=== PATIENT | male | born 1995 | race Caucasian/White ===

== ENCOUNTER 2018-05-25 19:22 | Emergency (ER) | payer OTHER ==
[2018-05-25] MEDS ORDERED: NS 0.9% 1000 ML* 1,000 ML IV ONE (19:49)
[2018-05-25] MEDS ORDERED: Ketorolac INJ* 30 MG/ML 1 ML VIAL IV PUSH ONE (19:51)
--- NOTE | 2018-05-25 19:54 | ED ---
GI/ HPI - HPI Summary HPI Summary: 22-year-old male presents with right upper quadrant pain for the past 2 months. He states that pain has not changed locations. Is more intense over the past days. He admits one episode of vomiting today and some nausea. Pulses been having diarrhea intermittently every time he eats. He denies any blood in stool. Has had no appetite today. No urinary symptoms. No testicular pain. No chest pain shortness breath or cough. No recent illness. No one else is sick. Did not eat anything different. was seen at urgent care this weekend and then had a normal CT per patient. No flank pain. No previous belly surgeries. - History of Current Complaint Chief Complaint: EDAbdPain Time Seen by Provider: 05/25/18 19:38 Stated Complaint: ABD PAIN/VOMITING Pain Intensity: 2 - Allergy/Home Medications Allergies/Adverse Reactions: Allergies Allergy/AdvReac Type Severity Reaction Status Date / Time No Known Allergies Allergy Verified 05/25/18 19:32 Home Medications: Home Medications NK [No Home Medications Reported] 05/25/18 [History Confirmed 05/25/18] PMH/Surg Hx/FS Hx/Imm Hx Endocrine/Hematology History: Denies: Hx Anticoagulant Therapy Cardiovascular History: Denies: Hx Myocardial Infarction Infectious Disease History: No Infectious Disease History: Denies: Traveled Outside the [place] in Last 30 Days - Family History Known Family History: Positive: Other - gallbladder issues - Social History Substance Use Type: Reports: None Review of Systems Negative: Fever Negative: Chest Pain Negative: Shortness Of Breath, Cough Positive: Abdominal Pain, Vomiting, Diarrhea, Nausea All Other Systems Reviewed And Are Negative: Yes Physical Exam Triage Information Reviewed: Yes Vital Signs On Initial Exam: Initial Vitals Temp Pulse Resp BP Pulse Ox 98.2 F 82 18 148/73 98 05/25/18 19:30 05/25/18 19:30 05/25/18 19:30 05/25/18 19:30 05/25/18 19:30 Vital Signs Reviewed: Yes Appearance: Positive: Well-Appearing Skin: Positive: Warm, Dry Head/Face: Positive: Normal Head/Face Inspection Eyes: Positive: Normal, EOMI, NICOLE, Conjunctiva Clear ENT: Positive: Normal ENT inspection, Pharynx normal, TMs normal Respiratory/Lung Sounds: Positive: Clear to Auscultation, Breath Sounds Present Cardiovascular: Positive: Normal, RRR Abdomen Description: Positive: Soft, Other: - mild tenderness RUQ Bowel Sounds: Positive: Present Musculoskeletal: Positive: Normal Neurological: Positive: Normal Psychiatric: Positive: Normal Diagnostics - Vital Signs Vital Signs Temp Pulse Resp BP Pulse Ox 05/25/18 19:30 98.2 F 82 18 148/73 98 - Laboratory Result Diagrams: 05/25/18 20:50 05/25/18 20:50 Lab Statement: Any lab studies that have been ordered have been reviewed, and results considered in the medical decision making process. - Ultrasound No standard instances Ultrasound Interpretation Completed By: Radiologist Summary of Ultrasound Findings: IMPRESSION: Biliary sludge without cholelithiasis or ultrasound findings of cholecystitis. GIGU Course/Dx - Course Course Of Treatment: 22-year-old male presents with right upper quadrant pain for the past 2 months. He states that pain has not changed locations. Is more intense over the past days. He admits one episode of vomiting today and some nausea. Pulses been having diarrhea intermittently every time he eats. He denies any blood in stool. Has had no appetite today. No urinary symptoms. No testicular pain. No chest pain shortness breath or cough. No recent illness. No one else is sick. Did not eat anything different. was seen at urgent care this weekend and then had a normal CT per patient. No flank pain. No previous belly surgeries. On exam has mild tenderness in the right upper quadrant. No rebound. wbc normal. electrolytnes normal. crp normal. gallbladder u/s shows sludge. with lenght of symptoms and sludge will have follow up with GI. patient understand and agrees with plan. - Diagnoses Differential Diagnoses - Male: Cholecystitis, Cholelithiasis, Gastroenteritis ( Viral) Provider Diagnoses: Abdominal pain, Nausea vomiting and diarrhea Discharge - Sign-Out/Discharge Documenting (check all that apply): Patient Departure - Discharge Plan Condition: Good Disposition: HOME Patient Education Materials: Abdominal Pain (ED) Referrals: Jose Roberto Calvin MD [Primary Care Provider] - Jatin Che MD [Medical Doctor] - Additional Instructions: Follow up with GI Take Tylenol or ibuprofen every 6 hours as needed for pain Eat a balanced diet Return to ED if develop any new or worsening symptoms - Billing Disposition and Condition Condition: GOOD Disposition: Home
[2018-05-25 20:21] VITALS: BP 126/73
[2018-05-25 20:55] LABS: ABS Basophils 0 10^3/ul (0-0.2); ABS Eosinophils 0 10^3/ul (0-0.6); ABS Lymphocytes 2.2 10^3/ul (1.0-4.8); ABS Monocytes 0.6 10^3/ul (0-0.8); ABS Neutrophils 7.5 10^3/ul (1.5-7.7); ABS Nucleated RBC 0 10^3/ul; Eosinophil % 0.3 %; Hematocrit 45 % (42-52); Hemoglobin 15.4 g/dl (14.0-18.0); Lymphocyte % 21.5 %; Mean Corpuscular HGB Conc 34 g/dl (31-36); Mean Corpuscular Hemoglobin 28 pg (27-31); Mean Corpuscular Volume 83 fL (80-94); Mean Platelet Volume 7.9 fL (7.4-10.4); Nucleated Red Blood Cells % 0.1; Platelet Count 298 10^3/ul (150-450); Red Blood Count 5.41 10^6/ul (4.00-5.40); Red Cell Distribution Width 13 % (10.5-15); White Blood Count 10.4 10^3/ul (3.5-10.8)
[2018-05-25 21:13] LABS: Albumin 4.8 g/dL (3.2-5.2); Albumin/Globulin Ratio 1.6 (1-3); BUN/Creatinine Ratio 11.8 (8-20); C Reactive Protein 1.26 mg/L (<8.01); Calcium 9.9 mg/dL (8.6-10.3); EGFR Non-African American 103.6 (>60); Potassium 3.6 mmol/L (3.5-5.0); Total Bilirubin 0.7 mg/dL (0.2-1.0); Total Protein 7.8 g/dL (6.4-8.9)
== END 2018-05-25 22:25 | disposition home or self-care (01) ==
LOC: ED 19:22
DX: R10.11 Right upper quadrant pain (principal); R11.2 Nausea with vomiting, unspecified; R19.7 Diarrhea, unspecified
CPT/HCPCS: 36415; 76705; 80053; 83690; 83735; 85025; 86140; 96361; 96374; 99283; J1885

== ENCOUNTER 2018-05-28 12:07 | Emergency (ER) | payer OTHER ==
--- NOTE | 2018-05-28 12:24 | ED ---
Abdominal Pain/Male - HPI Summary HPI Summary: A 22 y/o male presents to [facility] with a chief complaint of RUQ abd pain since . The patient reports that he was recently in the ED on 05/25/18 and was told he has "sludge in his gallbladder". The patient has a gastro appointment scheduled for 06/12/17, but returns to the ED on 05/28/18 with increased abd pain. He rates his abd pain as 5/10. The patient states that eating aggravates his pain. He last ate crackers at 10:30. - History of Current Complaint Chief Complaint: EDAbdPain Stated Complaint: ABD PAIN Time Seen by Provider: 05/28/18 12:13 Hx Obtained From: Patient Onset/Duration: Sudden Onset, Lasting Days, Still Present Severity Initially: Moderate Severity Currently: Moderate Pain Intensity: 5 Pain Scale Used: 0-10 Numeric Location: Discrete At: RUQ Radiates: No Aggravating Factor(s): Food Alleviating Factor(s): Nothing Associated Signs And Symptoms: Negative: Fever - Allergies/Home Medications Allergies/Adverse Reactions: Allergies Allergy/AdvReac Type Severity Reaction Status Date / Time No Known Allergies Allergy Verified 05/28/18 12:11 PMH/Surg Hx/FS Hx/Imm Hx Endocrine/Hematology History: Denies: Hx Anticoagulant Therapy, Hx Diabetes Cardiovascular History: Denies: Hx Hypercholesterolemia, Hx Hypertension, Hx Myocardial Infarction Infectious Disease History: No Infectious Disease History: Denies: Traveled Outside the [place] in Last 30 Days - Family History Known Family History: Positive: Other - gallbladder issues - Social History Alcohol Use: None Substance Use Type: Reports: None Smoking Status (MU): Never Smoked Tobacco Review of Systems Negative: Fever Positive: Abdominal Pain - RUQ All Other Systems Reviewed And Are Negative: Yes Physical Exam - Summary Physical Exam Summary: Appearance: The patient is well-nourished in no acute distress and in no acute pain. Skin: The skin is warm and dry and skin color reflects adequate perfusion. HEENT: The head is normocephalic and atraumatic. The pupils are equal and reactive. The conjunctivae are clear and without drainage. Nares are patent and without drainage. Mouth reveals moist mucous membranes and the throat is without erythema and exudate. The external ears are intact. The ear canals are patent and without drainage. The tympanic membranes are intact. Neck: The neck is supple with full range of motion and non-tender. There are no carotid bruits. There is no neck vein distension. Respiratory: Chest is non-tender. Lungs are clear to auscultation and breath sounds are symmetrical and equal. Cardiovascular: Heart is regular rate and rhythm. There is no murmur or rub auscultated. There is no peripheral edema and pulses are symmetrical and equal. Abdomen: Mild tenderness RUQ. There are normal bowel sounds heard in all four quadrants and there is no organomegaly palpated. Musculoskeletal: There is no back tenderness noted. Extremities are non-tender with full range of motion. There is good capillary refill. There is no peripheral edema or calf tenderness elicited. Neurological: Patient is alert and oriented to person, place and time. The patient has symmetrical motor strength in all four extremities. Cranial nerves are grossly intact. Deep tendon reflexes are symmetrical and equal in all four extremities. Psychiatric: The patient has an appropriate affect and does not exhibit any anxiety or depression. Triage Information Reviewed: Yes Vital Signs On Initial Exam: Initial Vitals Temp Pulse Resp BP Pulse Ox 98.6 F 85 16 152/67 99 05/28/18 12:09 05/28/18 12:09 05/28/18 12:09 05/28/18 12:09 05/28/18 12:09 Vital Signs Reviewed: Yes Diagnostics - Vital Signs Vital Signs Temp Pulse Resp BP Pulse Ox 05/28/18 12:09 98.6 F 85 16 152/67 99 - Laboratory Result Diagrams: 05/28/18 12:36 05/28/18 12:36 Lab Statement: Any lab studies that have been ordered have been reviewed, and results considered in the medical decision making process. Abdominal Pain Fem Course/Dx - Course Course Of Treatment: Mr. Gonzalez return to the emergency department complaining that his pain was worse today. It's the same pain that he's been having and just received a workup for. He was found to have biliary sludge and tenderness in his right upper quadrant previously and is scheduled for gastroenterology follow-up on June 12. He was nontoxic in appearance and vital signs are stable on arrival. Labs were obtained and were unremarkable. He was tender in the right upper quadrant and I will treat him with pain medication and try to get him through till he can see the airplane electrical repairer. - Diagnoses Provider Diagnoses: Gall bladder disease, Biliary colic Discharge - Sign-Out/Discharge Documenting (check all that apply): Patient Departure - DC - Discharge Plan Condition: Stable Disposition: HOME Prescriptions: traMADol TAB* [Ultram*] 50 mg PO Q6HR PRN #20 tab MDD 4 PRN Reason: Pain Referrals: Jose Roberto Calvin MD [Primary Care Provider] - (2-3 days) Additional Instructions: Keep your gastro appointment. Return to the ED if you experience any new or worsening symptoms. - Billing Disposition and Condition Condition: STABLE Disposition: Home - Attestation Statements Document Initiated by Scribe: Yes Documenting Scribe: Hebert Gross Provider For Whom Deniz is Documenting (Include Credential): Naresh Cunningham MD Scribe Attestation: I, Hebert Gross, scribed for Naresh Cunningham MD on 05/28/18 at 1540. Scribe Documentation Reviewed: Yes Provider Attestation: The documentation as recorded by the Hebert sanchez accurately reflects the service I personally performed and the decisions made by me, Naresh Cunningham MD Status of Scribe Document: Viewed
[2018-05-28 12:47] LABS: ABS Basophils 0 10^3/ul (0-0.2); ABS Eosinophils 0.1 10^3/ul (0-0.6); ABS Lymphocytes 1.4 10^3/ul (1.0-4.8); ABS Monocytes 0.6 10^3/ul (0-0.8); ABS Neutrophils 3.2 10^3/ul (1.5-7.7); ABS Nucleated RBC 0 10^3/ul; Eosinophil % 1.2 %; Hematocrit 47 % (42-52); Hemoglobin 15.8 g/dl (14.0-18.0); Lymphocyte % 26.3 %; Mean Corpuscular HGB Conc 34 g/dl (31-36); Mean Corpuscular Hemoglobin 28 pg (27-31); Mean Corpuscular Volume 84 fL (80-94); Mean Platelet Volume 7.9 fL (7.4-10.4); Nucleated Red Blood Cells % 0.1; Platelet Count 273 10^3/ul (150-450); Red Blood Count 5.61 10^6/ul (4.00-5.40); Red Cell Distribution Width 13 % (10.5-15); White Blood Count 5.2 10^3/ul (3.5-10.8)
[2018-05-28 13:03] LABS: Albumin 4.6 g/dL (3.2-5.2); Albumin/Globulin Ratio 1.6 (1-3); BUN/Creatinine Ratio 16.7 (8-20); C Reactive Protein 1.34 mg/L (<8.01); Calcium 9.6 mg/dL (8.6-10.3); EGFR Non-African American 107.6 (>60); Globulin 2.8 g/dL (2-4); Total Bilirubin 0.5 mg/dL (0.2-1.0); Total Protein 7.4 g/dL (6.4-8.9)
[2018-05-28 15:01] VITALS: BP 145/97
== END 2018-05-28 15:00 | disposition home or self-care (01) ==
LOC: ED 12:07
DX: K82.9 Disease of gallbladder, unspecified (principal); K80.50 Calculus of bile duct without cholangitis or cholecystitis without obstruction
CPT/HCPCS: 36415; 80053; 83690; 85025; 86140; 99282

== ENCOUNTER 2018-08-18 12:55 | Day surgery (SDC) | payer OTHER ==
[~2018-08-18 12:55] MED LIST: Buffered Lidocaine 1% SYRIN* 1 ML/SYRINGE INTRADERM ONE; Famotidine IV* 10 MG/ML 2 ML (20 mg) IV ONE; Lactated Ringers 1000 ML Bag* 1,000 ML IV SCH
[2018-08-18] MEDS ORDERED: Famotidine IV* 10 MG/ML 2 ML (20 mg) ONE (13:11)
[2018-08-18] MEDS ORDERED: Buffered Lidocaine 1% SYRIN* 1 ML/SYRINGE INTRADERM ONE (13:11)
[2018-08-18] MEDS ORDERED: ceFAZolin 2 GM in NS PREMIX(*) 2 GM/100 ML BAG IVPB ONE (13:11)
[2018-08-18] MEDS ORDERED: Midazolam* 1 MG/ML 5 ML VIAL (5 MG) ONE (13:34)
[2018-08-18] MEDS ORDERED: fentaNYL* 50 MCG/ML 2 ML VIAL (100 MCG VIAL) ONE ×2 (13:34→17:13)
[2018-08-18] MEDS ORDERED: DiMENhydriNATE IV* 50 MG/ML VIAL ONE (14:50)
[2018-08-18] MEDS ORDERED: Dexamethasone IV* 4 MG/ML 1 ML (4 MG) ONE (14:50)
[2018-08-18] MEDS ORDERED: Lidocaine 2% PF * 5 ML VIAL ONE (14:50)
[2018-08-18] MEDS ORDERED: Ondansetron INJ* 2 MG/ML VIAL ONE (14:50)
[2018-08-18] MEDS ORDERED: Propofol* 10 MG/ML 20 ML BTL ONE ×2 (14:50→17:03)
[2018-08-18] MEDS ORDERED: Ketorolac INJ* 30 MG/ML 1 ML VIAL ONE (14:50)
[2018-08-18] MEDS ORDERED: Bupivacaine 0.5% W/EPI SDV* 30 ML VIAL ONE (16:29)
[2018-08-18] MEDS ORDERED: Rocuronium* 10 MG/ML VIAL ONE (17:18)
[2018-08-18] MEDS ORDERED: HYDROmorphone INJ1* 1 MG/ML SYRINGE ONE ×2 (17:23→18:07)
[2018-08-18] MEDS ORDERED: oxyCODONE/Acetamin 5/325 MG* TAB PO ONE (17:52)
[2018-08-18] MEDS ORDERED: DiMENhydriNATE IV* 50 MG/ML VIAL IV PUSH PRN (17:56)
[2018-08-18] MEDS ORDERED: oxyCODONE/Acetamin 5/325 MG* TAB PO PRN (17:56)
[2018-08-18] MEDS ORDERED: Naloxone* 0.4 MG/ML 1 ML VIAL IV PRN (17:56)
[2018-08-18] MEDS ORDERED: HYDROmorphone INJ1* 1 MG/ML SYRINGE IV PRN (17:56)
[2018-08-18] MEDS ORDERED: oxyCODONE/Acetamin 5/325 MG* TAB ONE (18:32)
[2018-08-18 18:49] VITALS: BP 125/71
== END 2018-08-18 19:44 | disposition home or self-care (01) ==
LOC: OR 12:55
PROVIDERS: ATTEND Surgery
DX: K81.1 Chronic cholecystitis (principal); K21.9 Gastro-esophageal reflux disease without esophagitis
CPT/HCPCS: 88304; A9270-GY; J0690; J1100; J1170; J1240; J1885; J2250; J2405; J2704; J3010